=== PATIENT | male | born 1940 | race Caucasian/White ===

== ENCOUNTER 2018-08-02 14:38 | Inpatient (IN) | payer OTHER ==
[2018-08-02 15:35] LABS: ADD MAN DIFF? NO
[2018-08-02 15:36] LABS: WHITE BLOOD COUNT 17.2 10^3/ul (4.8-10.8)
[2018-08-02 15:36] LABS: BASOPHILS % 0.2 % (0.0-2.0); HEMATOCRIT 41.1 % (42.0-52.0); HEMOGLOBIN 14.2 g/dl (14.0-18.0); LYMPHOCYTES # 0.7 10^3/ul (0.8-2.9); LYMPHOCYTES % 4.1 % (15.0-51.0); MEAN CORPUSCULAR HGB CONC 34.5 g/dl (32.0-37.0); MEAN CORPUSCULAR VOLUME 95.6 fl (82.0-101.0); MEAN PLATELET VOLUME 10.7 fl (7.4-10.4); MONOCYTE # 0.8 10^3/ul (0.3-0.9); MONOCYTES % 4.5 % (0.0-11.0); NEUTROPHIL # 15.7 10^3/ul (1.6-7.5); PLATELET COUNT 364 10^3/UL (140-415); RED CELL DISTRIBUTION WIDTH 13.1 % (11.5-14.5)
[2018-08-02 15:56] LABS: ALANINE AMINOTRANSFERASE 24 IU/L (13-69); ALBUMIN 4.1 g/dl (3.3-4.9); ALKALINE PHOSPHATASE 60 IU/L (42-121); ANION GAP 14 (8-16); ASPARTATE AMINO TRANSFERASE 66 IU/L (15-46); BILIRUBIN,INDIRECT 0.9 mg/dl (0-1.1); BILIRUBIN,TOTAL 0.9 mg/dl (0.2-1.3); BLOOD UREA NITROGEN 54 mg/dl (7-20); CARBON DIOXIDE 26 mmol/L (21-31); CHLORIDE 109 mmol/L (97-110); CREATININE 2.27 mg/dl (0.61-1.24); GLUCOSE 118 mg/dl (70-220); PARTIAL THROMBOPLASTIN TIME 31.4 Sec (25.0-35.0); POTASSIUM 4.2 mmol/L (3.5-5.1); PROTIME 13.3 Sec (11.9-14.9); SODIUM 145 mmol/L (135-144); TOTAL PROTEIN 7.5 g/dl (6.1-8.1)
[2018-08-02 16:07] LABS: TROPONIN-I 0.026 ng/ml (0.000-0.120)
[2018-08-02 18:19] LABS: URINE BLOOD (Dip) POC 2+ (NEGATIVE); URINE GLUCOSE (Dip) POC Negative (NEGATIVE); URINE KETONES (Dip) POC 1+ (NEGATIVE); URINE LEUKOCYTE EST (Dip) POC Negative (NEGATIVE); URINE NITRITE (Dip) POC Negative (NEGATIVE); URINE TOTAL PROTEIN POC 3+ (NEGATIVE)
[2018-08-02] MEDS ORDERED: MAGNESIUM HYDROXIDE 30ML CUP PO (18:30)
[2018-08-02] MEDS ORDERED: ACETAMINOPHEN 325 MG TAB PO (18:30)
[2018-08-02] MEDS ORDERED: BISACODYL 10 MG SUPP PR (18:30)
[2018-08-02] MEDS ORDERED: NACL 0.9% 3 ML SYG IV (18:30)
[2018-08-02] MEDS ORDERED: DOCUSATE SODIUM 100 MG CAP PO (18:30)
[2018-08-02] MEDS ORDERED: ONDANSETRON 4 MG INJ IV (18:30)
[2018-08-02] MEDS: LORAZEPAM 2 MG INJ IV (18:48)
[2018-08-02] MEDS: SOD CHLORIDE 0.9% 1,000 ML IV ×2 (18:52→23:42)
[2018-08-02 19:31] LABS: ADD UMIC YES; UR AMORPHOUS CRYSTAL MANY /HPF (NONE SEEN); UR ASCORBIC ACID NEGATIVE (NEGATIVE); UR BACTERIA FEW /HPF (NONE SEEN); UR BILIRUBIN (Dip) NEGATIVE (NEGATIVE); UR BLOOD (Dip) 3+ mg/dL (NEGATIVE); UR CLARITY CLOUDY (CLEAR); UR COLOR AMBER (YELLOW); UR GLUCOSE (Dip) NEGATIVE (NEGATIVE); UR KETONES (Dip) TRACE mg/dL (NEGATIVE); UR LEUKOCYTE ESTERASE (Dip) NEGATIVE Leu/ul (NEGATIVE); UR MUCUS FEW /HPF (NONE SEEN); UR NITRITE (Dip) NEGATIVE (NEGATIVE); UR RBC 13 /HPF (0-5); UR SPECIFIC GRAVITY (Dip) 1.018 (1.003-1.030); UR TOTAL PROTEIN (Dip) 2+ mg/dl (NEGATIVE); UR UROBILINOGEN (Dip) NEGATIVE (NEGATIVE); UR WBC 11 /HPF (0-5)
[2018-08-02 20:22] LABS: FREE T4 (FREE THYROXINE) 1.27 ng/dl (0.78-2.44)
[2018-08-02] MEDS: clonAZEPAM 0.5 MG TAB PO (20:54)
[2018-08-02] MEDS ORDERED: NON-FORMULARY/PATIENT OWN MED (Carbidopa/Levodopa (Carbidopa-Levo 25-100 Mg Odt) 1 TAB) PO (21:00)
[2018-08-02] MEDS: FAMOTIDINE 20 MG TAB PO (23:04)
[2018-08-02] MEDS: TAMSULOSIN (SR) 0.4 MG CAP PO (23:04)
[2018-08-02] MEDS: MONTELUKAST 10 MG TAB PO (23:04)
[2018-08-03] MEDS: SOD CHLORIDE 0.9% 1,000 ML IV (04:20)
[2018-08-03] MEDS: clonAZEPAM 0.5 MG TAB PO ×3 (05:35→20:54)
[2018-08-03 06:05] LABS: ADD MAN DIFF? NO
[2018-08-03 06:10] LABS: BASOPHILS % 0.2 % (0.0-2.0); EOSINOPHILS % 0.2 % (0.0-7.0); HEMATOCRIT 37.9 % (42.0-52.0); HEMOGLOBIN 12.9 g/dl (14.0-18.0); LYMPHOCYTES # 0.9 10^3/ul (0.8-2.9); LYMPHOCYTES % 7.8 % (15.0-51.0); MEAN CORPUSCULAR HEMOGLOBIN 33.3 pg (29.0-33.0); MEAN CORPUSCULAR VOLUME 97.9 fl (82.0-101.0); MEAN PLATELET VOLUME 11.3 fl (7.4-10.4); MONOCYTE # 0.8 10^3/ul (0.3-0.9); NEUTROPHIL # 10.1 10^3/ul (1.6-7.5); NEUTROPHILS % 84.5 % (39.0-77.0); PLATELET COUNT 333 10^3/UL (140-415); RED BLOOD COUNT 3.87 10^6/ul (4.70-6.10); RED CELL DISTRIBUTION WIDTH 13.2 % (11.5-14.5)
[2018-08-03 06:10] LABS: WHITE BLOOD COUNT 11.9 10^3/ul (4.8-10.8)
[2018-08-03 07:27] LABS: ALANINE AMINOTRANSFERASE 36 IU/L (13-69); ALBUMIN 3.5 g/dl (3.3-4.9); ALBUMIN/GLOBULIN RATIO 1.12; ALKALINE PHOSPHATASE 56 IU/L (42-121); ANION GAP 13 (8-16); ASPARTATE AMINO TRANSFERASE 69 IU/L (15-46); BILIRUBIN,INDIRECT 0.7 mg/dl (0-1.1); BILIRUBIN,TOTAL 0.7 mg/dl (0.2-1.3); BLOOD UREA NITROGEN 56 mg/dl (7-20); CALCIUM 9.5 mg/dl (8.4-10.2); CARBON DIOXIDE 25 mmol/L (21-31); CHLORIDE 113 mmol/L (97-110); CREATININE 2.15 mg/dl (0.61-1.24); GLUCOSE 101 mg/dl (70-220); MAGNESIUM 2.4 mg/dl (1.7-2.5); PHOSPHORUS 5.2 mg/dl (2.5-4.9); POTASSIUM 3.8 mmol/L (3.5-5.1); SODIUM 147 mmol/L (135-144); TOTAL PROTEIN 6.6 g/dl (6.1-8.1)
[2018-08-03] MEDS: FAMOTIDINE 20 MG TAB PO (08:00)
[2018-08-03] MEDS: CITALOPRAM 20 MG TAB PO (08:00)
[2018-08-03] MEDS: [UNRECOGNIZED DRUG - REMARK] XX (08:30)
[2018-08-03] MEDS: LORAZEPAM 2 MG INJ IV (08:39)
[2018-08-03] MEDS: SOD CHLORIDE 0.9% 500 ML IV (10:33)
[2018-08-03] MEDS ORDERED: SINEMET PO (12:00)
[2018-08-03] MEDS: LEVOFLOXACIN 500MG/D5W (PMX) 100 ML IVPB (12:44)
[2018-08-03] MEDS: D5W-0.45 NACL + KCL 20 MEQ 1,000 ML IV ×2 (12:44→20:53)
[2018-08-03] MEDS: FAMOTIDINE 20 MG INJ IV (12:44)
[2018-08-03] MEDS: hydrALAzine 20 MG INJ IV ×2 (18:03→20:37)
[2018-08-03] MEDS: CARBIDOPA/LEVODOPA (25/100) TAB PO (20:27)
[2018-08-03] MEDS: MONTELUKAST 10 MG TAB PO (20:54)
[2018-08-03] MEDS: TAMSULOSIN (SR) 0.4 MG CAP PO (20:54)
[2018-08-04] MEDS: LORAZEPAM 2 MG INJ IV (02:39)
[2018-08-04 06:31] LABS: ADD MAN DIFF? NO
[2018-08-04 06:38] LABS: BASOPHILS % 0.2 % (0.0-2.0); EOSINOPHILS # 0.1 10^3/ul (0.0-0.5); EOSINOPHILS % 1.4 % (0.0-7.0); HEMOGLOBIN 12.5 g/dl (14.0-18.0); LYMPHOCYTES # 0.6 10^3/ul (0.8-2.9); LYMPHOCYTES % 6.9 % (15.0-51.0); MEAN CORPUSCULAR HEMOGLOBIN 32.4 pg (29.0-33.0); MEAN CORPUSCULAR HGB CONC 32.9 g/dl (32.0-37.0); MEAN CORPUSCULAR VOLUME 98.4 fl (82.0-101.0); MEAN PLATELET VOLUME 11.2 fl (7.4-10.4); MONOCYTE # 0.5 10^3/ul (0.3-0.9); NEUTROPHIL # 7.3 10^3/ul (1.6-7.5); PLATELET COUNT 280 10^3/UL (140-415); RED BLOOD COUNT 3.86 10^6/ul (4.70-6.10); RED CELL DISTRIBUTION WIDTH 13.1 % (11.5-14.5)
[2018-08-04 06:38] LABS: WHITE BLOOD COUNT 8.6 10^3/ul (4.8-10.8)
[2018-08-04] MEDS: clonAZEPAM 0.5 MG TAB PO ×3 (06:40→22:00)
[2018-08-04] MEDS: D5W-0.45 NACL + KCL 20 MEQ 1,000 ML IV ×2 (06:40→16:35)
[2018-08-04 06:57] LABS: INR 1.02; PROTIME 13.5 Sec (11.9-14.9); PT RATIO 1.1
[2018-08-04 07:14] LABS: MAGNESIUM 2.2 mg/dl (1.7-2.5)
[2018-08-04 07:14] LABS: PHOSPHORUS 3.1 mg/dl (2.5-4.9)
[2018-08-04 07:18] LABS: ANION GAP 8 (8-16); BLOOD UREA NITROGEN 40 mg/dl (7-20); CALCIUM 9.2 mg/dl (8.4-10.2); CARBON DIOXIDE 27 mmol/L (21-31); CHLORIDE 117 mmol/L (97-110); CREATININE 1.69 mg/dl (0.61-1.24); GLUCOSE 128 mg/dl (70-220); POTASSIUM 3.5 mmol/L (3.5-5.1); SODIUM 148 mmol/L (135-144)
[2018-08-04] MEDS: CITALOPRAM 20 MG TAB PO (09:00)
[2018-08-04] MEDS: CARBIDOPA/LEVODOPA (25/100) TAB PO ×3 (09:00→20:28)
[2018-08-04] MEDS: FAMOTIDINE 20 MG INJ IV (10:14)
[2018-08-04] MEDS ORDERED: LEVOFLOXACIN 250MG/D5W (PMX) 50 ML IVPB (11:00)
[2018-08-04] MEDS: hydrALAzine 20 MG INJ IV (18:00)
[2018-08-04] MEDS: TAMSULOSIN (SR) 0.4 MG CAP PO (20:28)
[2018-08-04] MEDS: MONTELUKAST 10 MG TAB PO (20:28)
[2018-08-05] MEDS: LORAZEPAM 2 MG INJ IV (01:20)
[2018-08-05] MEDS: D5W-0.45 NACL + KCL 20 MEQ 1,000 ML IV ×3 (01:27→22:00)
[2018-08-05] MEDS: hydrALAzine 20 MG INJ IV ×3 (01:56→18:40)
[2018-08-05] MEDS: clonAZEPAM 0.5 MG TAB PO ×2 (05:32→12:31)
[2018-08-05] MEDS: CARBIDOPA/LEVODOPA (25/100) TAB PO ×2 (09:00→12:31)
[2018-08-05] MEDS: CITALOPRAM 20 MG TAB PO (09:00)
[2018-08-05] MEDS: FAMOTIDINE 20 MG INJ IV (09:19)
[2018-08-05 12:23] LABS: ADD MAN DIFF? NO
[2018-08-05 12:31] LABS: BASOPHILS % 0.4 % (0.0-2.0); EOSINOPHILS # 0.1 10^3/ul (0.0-0.5); EOSINOPHILS % 1.9 % (0.0-7.0); HEMATOCRIT 42.1 % (42.0-52.0); LYMPHOCYTES # 0.6 10^3/ul (0.8-2.9); LYMPHOCYTES % 8.7 % (15.0-51.0); MEAN CORPUSCULAR HEMOGLOBIN 32.7 pg (29.0-33.0); MEAN CORPUSCULAR HGB CONC 33.3 g/dl (32.0-37.0); MEAN CORPUSCULAR VOLUME 98.4 fl (82.0-101.0); MEAN PLATELET VOLUME 10.8 fl (7.4-10.4); MONOCYTE # 0.6 10^3/ul (0.3-0.9); MONOCYTES % 8.5 % (0.0-11.0); NEUTROPHIL # 5.8 10^3/ul (1.6-7.5); NEUTROPHILS % 80.1 % (39.0-77.0); PLATELET COUNT 316 10^3/UL (140-415); RED BLOOD COUNT 4.28 10^6/ul (4.70-6.10); RED CELL DISTRIBUTION WIDTH 13.2 % (11.5-14.5)
[2018-08-05 12:31] LABS: WHITE BLOOD COUNT 7.3 10^3/ul (4.8-10.8)
[2018-08-05 12:46] LABS: ANION GAP 9 (8-16); BLOOD UREA NITROGEN 32 mg/dl (7-20); CALCIUM 9.6 mg/dl (8.4-10.2); CARBON DIOXIDE 29 mmol/L (21-31); CHLORIDE 115 mmol/L (97-110); CREATININE 1.62 mg/dl (0.61-1.24); GLUCOSE 120 mg/dl (70-220); MAGNESIUM 2.2 mg/dl (1.7-2.5); POTASSIUM 3.8 mmol/L (3.5-5.1); SODIUM 149 mmol/L (135-144)
[2018-08-05] MEDS: LIDOCAINE 2% (SDV) 5 ML INJ (17:44)
[2018-08-06] MEDS: clonAZEPAM 0.5 MG TAB PO ×3 (00:13→14:19)
[2018-08-06] MEDS: TAMSULOSIN (SR) 0.4 MG CAP PO (00:13)
[2018-08-06] MEDS: CARBIDOPA/LEVODOPA (25/100) TAB PO ×3 (00:13→14:19)
[2018-08-06] MEDS: MONTELUKAST 10 MG TAB PO (00:13)
[2018-08-06] MEDS ORDERED: PENDING SANTYL ORDER FOR WOUND CARE XX (05:30)
[2018-08-06 06:52] LABS: ADD MAN DIFF? NO
[2018-08-06 06:55] LABS: WHITE BLOOD COUNT 7.3 10^3/ul (4.8-10.8)
[2018-08-06 06:55] LABS: BASOPHILS % 0.1 % (0.0-2.0); EOSINOPHILS # 0.1 10^3/ul (0.0-0.5); EOSINOPHILS % 1.4 % (0.0-7.0); HEMATOCRIT 37.3 % (42.0-52.0); HEMOGLOBIN 12.2 g/dl (14.0-18.0); LYMPHOCYTES # 0.8 10^3/ul (0.8-2.9); LYMPHOCYTES % 10.3 % (15.0-51.0); MEAN CORPUSCULAR HEMOGLOBIN 31.9 pg (29.0-33.0); MEAN CORPUSCULAR HGB CONC 32.7 g/dl (32.0-37.0); MEAN CORPUSCULAR VOLUME 97.4 fl (82.0-101.0); MEAN PLATELET VOLUME 11.2 fl (7.4-10.4); MONOCYTE # 0.7 10^3/ul (0.3-0.9); MONOCYTES % 9.6 % (0.0-11.0); NEUTROPHIL # 5.7 10^3/ul (1.6-7.5); NEUTROPHILS % 78.3 % (39.0-77.0); PLATELET COUNT 311 10^3/UL (140-415); RED BLOOD COUNT 3.83 10^6/ul (4.70-6.10); RED CELL DISTRIBUTION WIDTH 13.2 % (11.5-14.5)
[2018-08-06 07:23] LABS: ANION GAP 9 (8-16); BLOOD UREA NITROGEN 36 mg/dl (7-20); CALCIUM 9.2 mg/dl (8.4-10.2); CARBON DIOXIDE 27 mmol/L (21-31); CHLORIDE 116 mmol/L (97-110); CREATININE 1.72 mg/dl (0.61-1.24); GLUCOSE 115 mg/dl (70-220); POTASSIUM 3.7 mmol/L (3.5-5.1); SODIUM 148 mmol/L (135-144)
[2018-08-06 07:24] LABS: MAGNESIUM 2.1 mg/dl (1.7-2.5)
[2018-08-06] MEDS: FAMOTIDINE 20 MG TAB PEG (09:16)
[2018-08-06] MEDS: CITALOPRAM 20 MG TAB PO (09:16)
[2018-08-06] MEDS: PROPOFOL 40 ML (09:17)
== END 2018-08-06 19:20 | DRG 684 ==
LOC: E/R 14:38 → PP2 17:39
PROC: 0DH63UZ Insertion of Feeding Device into Stomach, Percutaneous Approach (ICD-10-PCS; principal; 2018-08-05 16:00)
DX: N17.9 Acute kidney failure, unspecified (principal); E86.0 Dehydration; G20 Parkinson's disease; R13.10 Dysphagia, unspecified; F41.9 Anxiety disorder, unspecified; F41.0 Panic disorder [episodic paroxysmal anxiety]; N40.0 Benign prostatic hyperplasia without lower urinary tract symptoms; K40.90 Unilateral inguinal hernia, without obstruction or gangrene, not specified as recurrent; D89.89 Other specified disorders involving the immune mechanism, not elsewhere classified
CPT/HCPCS: 36415; 70450; 71045; 80048; 80053; 81001; 81003; 83735; 84100; 84439; 84443; 84484; 85025; 85610; 85730; 87086; 92526; 92610; 93005; 97110; 97163; 97167; 99285-25; G0378

== ENCOUNTER 2018-08-11 07:34 | Inpatient (IN) | payer OTHER ==
[2018-08-11 08:07] LABS: WHITE BLOOD COUNT 31.1 10^3/ul (4.8-10.8)
[2018-08-11 08:07] LABS: ABNORMAL IP MESSAGE 1; HEMATOCRIT 40.6 % (42.0-52.0); HEMOGLOBIN 12.7 g/dl (14.0-18.0); MEAN CORPUSCULAR HEMOGLOBIN 31.4 pg (29.0-33.0); MEAN CORPUSCULAR HGB CONC 31.3 g/dl (32.0-37.0); MEAN CORPUSCULAR VOLUME 100.2 fl (82.0-101.0); PLATELET COUNT 354 10^3/UL (140-415); POSITIVE DIFF @See below; RED BLOOD COUNT 4.05 10^6/ul (4.70-6.10); RED CELL DISTRIBUTION WIDTH 13.9 % (11.5-14.5)
[2018-08-11] MEDS: SOD CHLORIDE 0.9% 1,000 ML IV ×2 (08:07→08:58)
[2018-08-11 08:12] LABS: ADD MAN DIFF? YES
[2018-08-11] MEDS: ACETAMINOPHEN 650 MG SUPP PR (08:13)
[2018-08-11 08:23] LABS: LACTIC ACID 1.4 mmol/L (0.5-2.0)
[2018-08-11 08:25] LABS: ANION GAP 11 (8-16); BLOOD UREA NITROGEN 113 mg/dl (7-20); CALCIUM 9.5 mg/dl (8.4-10.2); CARBON DIOXIDE 31 mmol/L (21-31); CHLORIDE 120 mmol/L (97-110); CREATININE 3.97 mg/dl (0.61-1.24); GLUCOSE 138 mg/dl (70-220); POTASSIUM 4.6 mmol/L (3.5-5.1); SODIUM 157 mmol/L (135-144)
[2018-08-11 08:28] LABS: INR 1.17; PARTIAL THROMBOPLASTIN TIME 34.9 Sec (25.0-35.0); PROTIME 15.1 Sec (11.9-14.9); PT RATIO 1.2
[2018-08-11] MEDS: AZTREONAM 1 GM/NS (PMX) 50 ML IVPB (08:28)
[2018-08-11 08:36] LABS: TROPONIN-I 0.039 ng/ml (0.000-0.120)
[2018-08-11 08:47] LABS: BAND NEUTROPHILS #M 0.9 10^3/ul (0.0-0.6); BAND NEUTROPHILS % (M) 3 % (0-4); LYMPHOCYTES #M 0.6 10^3/ul (0.8-2.9); LYMPHOCYTES % (M) 2 % (15-51); MONOCYTE #M 0.6 10^3/ul (0.3-0.9); MONOCYTES % (M) 2 % (0-11); PLATELET ESTIMATE NORMAL; RBC MORPHOLOGY COMMENT @See below; SEG NEUT #M 29.2 10^3/ul (1.6-7.5); SEGMENTED NEUTROPHILS (M) % 93 % (39-77); SMUDGE%M 4 % (0-0); WBC MORPHOLOGY COMMENT @See below
[2018-08-11] MEDS: VANCOMYCIN 1 GM (PMX) 250 ML IVPB (08:58)
[2018-08-11] MEDS ORDERED: ONDANSETRON 4 MG INJ IV ×2 (09:00→10:00)
[2018-08-11] MEDS ORDERED: ACETAMINOPHEN 325 MG TAB PO (09:00)
[2018-08-11] MEDS ORDERED: SOD CHLORIDE 0.9% 1,000 ML IV (09:35)
[2018-08-11] MEDS ORDERED: VANCOMYCIN IV PER PHARMACY XX (10:00)
[2018-08-11] MEDS ORDERED: BISACODYL 10 MG SUPP PR (10:00)
[2018-08-11] MEDS ORDERED: NACL 0.9% 3 ML SYG IV (10:00)
[2018-08-11] MEDS ORDERED: MAGNESIUM HYDROXIDE 30ML CUP GTB (10:00)
[2018-08-11] MEDS: FAMOTIDINE 20 MG INJ IV (10:00)
[2018-08-11] MEDS: DEXTROSE 5%-0.45% NACL 1,000 ML IV ×2 (12:00→23:06)
[2018-08-11 12:59] LABS: LACTIC ACID 0.9 mmol/L (0.5-2.0)
[2018-08-11] MEDS: CARBIDOPA/LEVODOPA 25-100 (CR) TAB PO ×4 (13:00→23:07)
[2018-08-11] MEDS: HEPARIN 5,000 UNIT/0.5 ML VIAL SC ×2 (13:46→23:10)
[2018-08-11] MEDS: AZTREONAM 2 GM in DEXTROSE 5% 100 ML IVPB ×2 (17:22→23:07)
[2018-08-11] MEDS: TAMSULOSIN (SR) 0.4 MG CAP PO (23:07)
[2018-08-12] MEDS: DEXTROSE 5%-0.45% NACL 1,000 ML IV ×4 (02:00→22:45)
[2018-08-12] MEDS: ACETAMINOPHEN 325 MG TAB GTB ×2 (03:49→10:09)
[2018-08-12] MEDS: HEPARIN 5,000 UNIT/0.5 ML VIAL SC ×2 (06:23→16:36)
[2018-08-12 07:13] LABS: ADD MAN DIFF? NO
[2018-08-12 07:16] LABS: WHITE BLOOD COUNT 23.3 10^3/ul (4.8-10.8)
[2018-08-12 07:16] LABS: ABNORMAL IP MESSAGE 1; BASOPHIL # 0.1 10^3/ul (0.0-0.1); BASOPHILS % 0.2 % (0.0-2.0); EOSINOPHILS # 0.1 10^3/ul (0.0-0.5); EOSINOPHILS % 0.2 % (0.0-7.0); HEMATOCRIT 38.2 % (42.0-52.0); HEMOGLOBIN 11.8 g/dl (14.0-18.0); LYMPHOCYTES # 0.7 10^3/ul (0.8-2.9); LYMPHOCYTES % 2.9 % (15.0-51.0); MEAN CORPUSCULAR HGB CONC 30.9 g/dl (32.0-37.0); MEAN CORPUSCULAR VOLUME 103.5 fl (82.0-101.0); MEAN PLATELET VOLUME 13.3 fl (7.4-10.4); MONOCYTE # 1.1 10^3/ul (0.3-0.9); MONOCYTES % 4.6 % (0.0-11.0); NEUTROPHIL # 21.2 10^3/ul (1.6-7.5); NEUTROPHILS % 91.2 % (39.0-77.0); PLATELET COUNT 342 10^3/UL (140-415); POSITIVE DIFF @See below; RED BLOOD COUNT 3.69 10^6/ul (4.70-6.10); RED CELL DISTRIBUTION WIDTH 13.9 % (11.5-14.5)
[2018-08-12 08:08] LABS: ANION GAP 9 (8-16); BLOOD UREA NITROGEN 86 mg/dl (7-20); CALCIUM 8.9 mg/dl (8.4-10.2); CARBON DIOXIDE 27 mmol/L (21-31); CHLORIDE 126 mmol/L (97-110); CREATININE 2.66 mg/dl (0.61-1.24); GLUCOSE 135 mg/dl (70-220); MAGNESIUM 3.1 mg/dl (1.7-2.5); SODIUM 158 mmol/L (135-144)
[2018-08-12] MEDS: AZTREONAM 2 GM in DEXTROSE 5% 100 ML IVPB (09:01)
[2018-08-12] MEDS: FAMOTIDINE 20 MG INJ IV (09:10)
[2018-08-12] MEDS: CARBIDOPA/LEVODOPA 25-100 (CR) TAB PO (09:10)
[2018-08-12] MEDS: METOCLOPRAMIDE 5 MG TAB GTB (09:10)
[2018-08-12] MEDS: CITALOPRAM 20 MG TAB GTB (09:13)
[2018-08-12] MEDS ORDERED: clonAZEPAM 0.5 MG TAB GTB (09:30)
[2018-08-12] MEDS: morphine 2 MG INJ IV ×3 (11:28→18:10)
[2018-08-12] MEDS ORDERED: GUAIFENESIN 20 MG/ML 5ML CUP NGT (11:30)
[2018-08-12] MEDS ORDERED: CARBIDOPA/LEVODOPA 25-100 (CR) TAB PO (13:00)
[2018-08-12] MEDS ORDERED: [UNRECOGNIZED DRUG - REMARK] XX (13:30)
[2018-08-12] MEDS: ALBUTEROL/IPRATROPIUM (NEB) 3 ML AMP HHN (13:39)
[2018-08-12] MEDS: CARBIDOPA/LEVODOPA (25/100) TAB GTB (16:23)
[2018-08-12] MEDS: ENTACAPONE 200 MG TAB PO (16:23)
[2018-08-12] MEDS ORDERED: BISACODYL 10 MG SUPP PR (19:00)
[2018-08-12] MEDS ORDERED: ONDANSETRON 4 MG INJ IV (19:00)
[2018-08-12] MEDS ORDERED: AZTREONAM 2 GM in DEXTROSE 5% 100 ML IVPB (21:00)
[2018-08-12] MEDS: ATROPINE SULFATE 1% 5ML SL (22:30)
[2018-08-12] MEDS: SCOPOLAMINE 1.5 MG PATCH TRANSDERM (22:30)
[2018-08-12] MEDS: MONTELUKAST 10 MG TAB NGT (22:30)
[2018-08-12] MEDS: morphine (DRIP) 100 MG/100 ML 100 ML IV (22:38)
[2018-08-12] MEDS: ACETAMINOPHEN 650MG/20.3ML CUP GTB (22:45)
[2018-08-12] MEDS: LORAZEPAM 2 MG INJ IV (22:58)
[2018-08-13] MEDS: DEXTROSE 5%-0.45% NACL 1,000 ML IV ×2 (00:31→08:55)
[2018-08-13] MEDS: ATROPINE SULFATE 1% 5ML SL ×3 (02:50→16:12)
[2018-08-13] MEDS: ACETAMINOPHEN 650MG/20.3ML CUP GTB ×2 (04:48→16:12)
[2018-08-13 07:35] LABS: ABNORMAL IP MESSAGE 1; HEMATOCRIT 34.9 % (42.0-52.0); HEMOGLOBIN 10.5 g/dl (14.0-18.0); MEAN CORPUSCULAR HEMOGLOBIN 31.3 pg (29.0-33.0); MEAN CORPUSCULAR HGB CONC 30.1 g/dl (32.0-37.0); MEAN CORPUSCULAR VOLUME 103.9 fl (82.0-101.0); PLATELET COUNT 327 10^3/UL (140-415); POSITIVE DIFF @See below; RED BLOOD COUNT 3.36 10^6/ul (4.70-6.10); RED CELL DISTRIBUTION WIDTH 14.2 % (11.5-14.5)
[2018-08-13 07:40] LABS: ADD MAN DIFF? YES
[2018-08-13 08:12] LABS: MAGNESIUM 2.8 mg/dl (1.7-2.5)
[2018-08-13 08:15] LABS: ANION GAP 7 (8-16); BLOOD UREA NITROGEN 68 mg/dl (7-20); CALCIUM 8.5 mg/dl (8.4-10.2); CARBON DIOXIDE 27 mmol/L (21-31); CHLORIDE 129 mmol/L (97-110); CREATININE 2.14 mg/dl (0.61-1.24); GLUCOSE 150 mg/dl (70-220); POTASSIUM 3.8 mmol/L (3.5-5.1); SODIUM 159 mmol/L (135-144)
[2018-08-13 08:19] LABS: BAND NEUTROPHILS % (M) 5 % (0-4); LYMPHOCYTES #M 0.4 10^3/ul (0.8-2.9); LYMPHOCYTES % (M) 2 % (15-51); MONOCYTE #M 1.2 10^3/ul (0.3-0.9); MONOCYTES % (M) 6 % (0-11); PLATELET ESTIMATE NORMAL; SEG NEUT #M 18.5 10^3/ul (1.6-7.5); SEGMENTED NEUTROPHILS (M) % 87 % (39-77)
[2018-08-13] MEDS ORDERED: CITALOPRAM 20 MG TAB GTB (09:00)
[2018-08-13] MEDS ORDERED: ASPIRIN 81 MG TAB NGT (09:00)
[2018-08-13] MEDS ORDERED: VANCOMYCIN 1 GM 250 ML IVPB (09:00)
== END 2018-08-13 22:45 | disposition expired | DRG 871 ==
LOC: E/R 07:34 → 2NE 08:43
DX: A41.9 Sepsis, unspecified organism (principal); J96.01 Acute respiratory failure with hypoxia; J18.9 Pneumonia, unspecified organism; E87.0 Hyperosmolality and hypernatremia; N17.9 Acute kidney failure, unspecified; E44.0 Moderate protein-calorie malnutrition; M35.8 Other specified systemic involvement of connective tissue; R65.20 Severe sepsis without septic shock; I12.9 Hypertensive chronic kidney disease with stage 1 through stage 4 chronic kidney disease, or unspecified chronic kidney disease; N18.9 Chronic kidney disease, unspecified; Z68.22 Body mass index [BMI] 22.0-22.9, adult; G20 Parkinson's disease; R13.10 Dysphagia, unspecified; Z93.1 Gastrostomy status; N40.0 Benign prostatic hyperplasia without lower urinary tract symptoms; Z66 Do not resuscitate; F02.80 Dementia in other diseases classified elsewhere, unspecified severity, without behavioral disturbance, psychotic disturbance, mood disturbance, and anxiety; Z51.5 Encounter for palliative care
CPT/HCPCS: 36415; 71045; 80048; 83605; 83735; 84484; 85025; 85610; 85730; 87040; 93005; 94664; 96374; 99291-25